=== PATIENT | female | born 1975 | race Caucasian/White ===

== ENCOUNTER → 2016-03-15 | Outpatient (CLI) | payer BC ==
--- NOTE | 2016-03-16 09:36 | MM ---
Reason for exam: screening (asymptomatic). Last mammogram was performed 1 year and 3 months ago. History: Retro-pectoral silicone gel implants in both breasts, February 2014. Benign cyst aspiration of the left breast, 2009. Saline implants in both breasts, 2004. Physical Findings: A clinical breast exam by your physician is recommended on an annual basis and results should be correlated with mammographic findings. MG Screening Mammo Implant/CAD Bilateral CC, MLO, and ID view(s) were taken. Prior study comparison: December 18, 2014, bilateral MG screening mammo implant/CAD. June 22, 2011, CAD bilateral diagnostic mammogram. The breast tissue is extremely dense which could obscure a lesion on mammography. There is no discrete abnormality. Implants are intact. No significant changes when compared with prior studies. ASSESSMENT: Negative, BI-RAD 1 RECOMMENDATION: Routine screening mammogram of both breasts in 1 year.
== END | disposition home or self-care (01) ==
LOC: RADMAMWWP 08:25
PROVIDERS: ATTEND Obstetrics & Gynecology
DX: Z12.31 Encounter for screening mammogram for malignant neoplasm of breast (principal)

== ENCOUNTER 2016-05-30 07:51 | Day surgery (SDC) | payer BC ==
[2016-05-30] MEDS ORDERED: LACTATED RINGERS 1,000 ML IV SCH (08:22)
[2016-05-30] MEDS ORDERED: LIDOCAINE 1% 20 ML VIAL (10MG/ML) FOR IV START INTRADERMA PRN (08:22)
[2016-05-30] MEDS ORDERED: FAMOTIDINE 20 MG/2 ML VIAL IV PRN (08:22)
[2016-05-30] MEDS ORDERED: MIDAZOLAM 2 MG/2 ML VIAL IV PRN (08:22)
[2016-05-30] MEDS ORDERED: HYDROmorphone 1 MG/ML 1 ML SYRINGE IVP PRN (08:22)
[2016-05-30 08:37] VITALS: RESP 18; TEMP 98
[2016-05-30] MEDS ORDERED: LACTATED RINGERS 1,000 ML IV ONE (08:37)
[2016-05-30] MEDS ORDERED: DEXAMETHASONE SOD PHOS (MDV) 100 MG/10 ML VIAL IVP ONE (08:39)
[2016-05-30] MEDS ORDERED: ONDANSETRON 4 MG/2 ML VIAL IVP ONE (08:40)
[2016-05-30] MEDS ORDERED: SCOPOLAMINE 1.5MG/72HR PATCH TRANSDERM ONE (08:40)
[2016-05-30] MEDS ORDERED: CIPROFLOXACIN/DEXTROSE PMX 400 MG in DEXTROSE/WATER 1 200ML.BAG IVPB STA (08:43)
[2016-05-30] MEDS ORDERED: HEPARIN SODIUM,PORCINE 5,000 UNIT/ML 1 ML VIAL SQ ONE (09:02)
--- NOTE | 2016-05-30 09:05 | P.PN ---
Progress Note - Text This is an addendum to history and physical I have had a discussion with the patient and her that we will do an anoscopic exam at the time of I&D of the abscess. Additionally we have discussed that I will do an I&D of the abscess however, if this is persistent postoperatively where she has persistent drainage we will obtain consultation with infectious disease and possibly colorectal surgery. The patient and her understand the risks and benefits including bleeding, infection, and reaction to the anesthetic as well as recurrent or persistent abscess drainage and wish to proceed.
[2016-05-30] MEDS ORDERED: MIDAZOLAM 2 MG/2 ML VIAL ONE (09:23)
[2016-05-30] MEDS ORDERED: ePHEDrine 50 MG/ML 1 ML AMP ONE (09:23)
[2016-05-30] MEDS ORDERED: fentaNYL (PF) 50 MCG/ML 2 ML AMP ONE (09:23)
[2016-05-30] MEDS ORDERED: PROPOFOL 10 MG/ML 20 ML VIAL IV ONE (09:23)
[2016-05-30] MEDS ORDERED: LIDOCAINE 1% INJ 10MG/ML (20 ML MDV) SQ ONE ×2 (09:46)
--- NOTE | 2016-05-30 10:00 | P.OP ---
Date of Procedure: 05/30/16 Preoperative Diagnosis: Left perianal abscess Postoperative Diagnosis: Same Procedure(s) Performed: Anoscopic exam under anesthesia, I&D perianal abscess Anesthesia: MAC, local Surgeon: Melodie Valentin Estimated Blood Loss (ml): 1 IV fluids (ml): 300 Pathology: other (portion of wall of the abscess) Condition: stable Disposition: PACU Indications for Procedure: Persistent draining perianal abscess Operative Findings: 1 x 0.8 cm left lateral perianal abscess approximately 1 cm from the anal verge , external hemorrhoids, internal hemorrhoids, healthy-appearing anal mucosa no lesions of concern noted on anoscopy Description of Procedure: Patient was taken to the operating room and placed in the left lateral position. Sedation was administered. Following this a rectal examination was performed. Patient was noted to have good sphincter tone. She was noted to have an anterior and left posterior lateral hemorrhoidal external complex. Additionally in the left posterior lateral area there is a 1 x 0.8 cm swelling which had an opening with some seropurulent drainage. Patient underwent an anoscopic examination. The endoscope was introduced without difficulty. Careful evaluation of the mucosa did not reveal any specific lesions of concern. The mucosa appeared to be healthy. As the scope was withdrawn on the left lateral wall of the anal canal careful attention was made to look for any fistulous tract opening. There was a question of a pinpoint area of increased erythema at this region but no fistulous tract was identified. The patient was noted to have some very small internal hemorrhoidal tissue which is not worrisome. Following this the perianal area was prepped and draped in a sterile fashion. A probe was utilized to evaluate the area of the abscess. No tract was identified. A small cruciate incision was made over the area and the floor of the abscess cavity appeared to be very firm and consistent with granulation tissue. This was debrided. Cultures were obtained. The wound was well irrigated. No evidence of any tract was identified. After we were assured that hemostasis was attained the wound was packed using iodoform gauze. The size of the defect was approximately 1 x 1 by 0.8 cm. The patient tolerated procedure in stable condition. All instrument and sponge counts were correct at the end of the case.
--- NOTE | 2016-05-30 10:04 | P.DS ---
Providers Attending physician: Melodie Valentin Primary care physician: Stated None Plan - Discharge Summary New Discharge Prescriptions: Ciprofloxacin [Cipro Susp] 500 mg PO Q12HR #14 ml HYDROcodone/APAP 5-325MG [Prosper 5] 1 - 2 each PO Q4H PRN #20 tab PRN Reason: Pain Discharge Medication List Ciprofloxacin [Cipro Susp] 500 mg PO Q12HR #14 ml 05/30/16 [Rx] HYDROcodone/APAP 5-325MG [Prosper 5] 1 - 2 each PO Q4H PRN #20 tab 05/30/16 [Rx] Patient Instructions/Handouts: *Surgery [facility] - Scopalamine Patch Instructions Activity/Diet/Wound Care/Special Instructions: Sitz baths twice a day Change packing iodoform gauze twice a day Do not drive today Do not drive if taking narcotic pain medication Patient to call if any concerns with fever or increased pain or questions Discharge Disposition: HOME SELF-CARE
[2016-05-30 10:39] VITALS: BP 99/70; PULSE 62
== END 2016-05-30 11:06 | disposition home or self-care (01) ==
LOC: OR 07:51
PROVIDERS: ATTEND Surgery
DX: K61.0 Anal abscess (principal); K64.4 Residual hemorrhoidal skin tags; K64.8 Other hemorrhoids; Z88.2 Allergy status to sulfonamides
CPT/HCPCS: 81025; 88304; 87070; 87205; 87075; 46045; J2250; J2405; J2001; J3010; J0744; J1100; J2704

== ENCOUNTER → 2016-11-27 | Outpatient (CLI) | payer OTHER | END | disposition home or self-care (01) | LOC: LABWHC1 10:38 | PROVIDERS: ATTEND Internal Medicine | DX: Z00.5 Encounter for examination of potential donor of organ and tissue (principal) | CPT/HCPCS: 36415 ==

== ENCOUNTER → 2017-07-11 | Outpatient (CLI) | payer BC ==
--- NOTE | 2017-07-11 15:18 | MM ---
Reason for exam: screening (asymptomatic). Last mammogram was performed 1 year and 4 months ago. History: Retro-pectoral silicone gel implants in both breasts, February 2014. Benign cyst aspiration of the left breast, 2009. Saline implants in both breasts, 2004. Physical Findings: A clinical breast exam by your physician is recommended on an annual basis and results should be correlated with mammographic findings. MG Screening Mammo Implant/CAD Bilateral CC and MLO view(s) were taken. Prior study comparison: March 15, 2016, bilateral MG screening mammo implant/CAD. December 18, 2014, bilateral MG screening mammo implant/CAD. The breast tissue is heterogeneously dense. This may lower the sensitivity of mammography. Bilateral implants are intact. ASSESSMENT: Negative, BI-RAD 1 RECOMMENDATION: Routine screening mammogram of both breasts in 1 year.
== END | disposition home or self-care (01) ==
LOC: RADMAMWWP 08:26
PROVIDERS: ATTEND Obstetrics & Gynecology
DX: Z12.31 Encounter for screening mammogram for malignant neoplasm of breast (principal)
CPT/HCPCS: 77067

== ENCOUNTER → 2018-05-31 | Outpatient (CLI) | payer BC | END | disposition home or self-care (01) | LOC: LABWHC1 10:30 | PROVIDERS: ATTEND Obstetrics & Gynecology | DX: N95.9 Unspecified menopausal and perimenopausal disorder (principal) | CPT/HCPCS: 36415; 83001 ==

== ENCOUNTER → 2018-10-10 | Outpatient (CLI) | payer BC ==
--- NOTE | 2018-10-14 09:52 | MM ---
Reason for exam: screening (asymptomatic). Last mammogram was performed 1 year and 3 months ago. History: Retro-pectoral silicone gel implants in both breasts, February 2014. Benign cyst aspiration of the left breast, 2009. Saline implants in both breasts, 2004. Physical Findings: A clinical breast exam by your physician is recommended on an annual basis and results should be correlated with mammographic findings. MG Screening Mammo Implant/CAD Bilateral CC, MLO, and ID view(s) were taken. Prior study comparison: July 11, 2017, bilateral MG screening mammo implant/CAD. March 15, 2016, bilateral MG screening mammo implant/CAD. The breast tissue is heterogeneously dense. This may lower the sensitivity of mammography. Bilateral breast prothesis. No significant changes when compared with prior studies. ASSESSMENT: Benign, BI-RAD 2 RECOMMENDATION: Routine screening mammogram of both breasts in 1 year.
== END | disposition home or self-care (01) ==
LOC: RADMAMWWP 15:42
PROVIDERS: ATTEND Obstetrics & Gynecology
DX: Z12.31 Encounter for screening mammogram for malignant neoplasm of breast (principal); Z98.82 Breast implant status
CPT/HCPCS: 77067

== ENCOUNTER → 2020-02-06 | Outpatient (CLI) | payer BC ==
--- NOTE | 2020-02-09 10:04 | MM ---
Reason for exam: screening (asymptomatic). Last mammogram was performed 1 year and 4 months ago. History: Pre-pectoral implants in both breasts, February 2019. Breast lifts of both breasts, February 2019. Retro-pectoral silicone gel implants in both breasts, February 2014. Benign cyst aspiration of the left breast, 2009. Saline implants in both breasts, 2004. Taking hormonal contraceptives for 2 years. Physical Findings: A clinical breast exam by your physician is recommended on an annual basis and results should be correlated with mammographic findings. MG Screening Mammo Implant/CAD Bilateral CC, MLO, and ID view(s) were taken. Prior study comparison: October 10, 2018, bilateral MG screening mammo implant/CAD. July 11, 2017, bilateral MG screening mammo implant/CAD. The breast tissue is heterogeneously dense. This may lower the sensitivity of mammography. Bilateral implants are intact. ASSESSMENT: Benign, BI-RAD 2 RECOMMENDATION: Routine screening mammogram of both breasts in 1 year.
== END | disposition home or self-care (01) ==
LOC: RADMAMWWP 07:22
PROVIDERS: ATTEND Obstetrics & Gynecology
DX: Z12.31 Encounter for screening mammogram for malignant neoplasm of breast (principal); Z98.82 Breast implant status
CPT/HCPCS: 77067

== ENCOUNTER → 2021-02-16 | Outpatient (CLI) | payer BC ==
--- NOTE | 2021-02-21 10:42 | MM ---
Reason for exam: screening (asymptomatic). Last mammogram was performed 1 year ago. History: Pre-pectoral implants in both breasts, February 2019. Breast lifts of both breasts, February 2019. Retro-pectoral silicone gel implants in both breasts, February 2014. Benign cyst aspiration of the left breast, 2009. Saline implants in both breasts, 2004. Taking hormonal contraceptives for 2 years. Physical Findings: A clinical breast exam by your physician is recommended on an annual basis and results should be correlated with mammographic findings. MG Screening Mammo Implant/CAD Bilateral CC, MLO, and ID view(s) were taken. Prior study comparison: February 06, 2020, bilateral MG screening mammo implant/CAD. October 10, 2018, bilateral MG screening mammo implant/CAD. The breast tissue is heterogeneously dense. This may lower the sensitivity of mammography. Retropectoral silicone implants. Benign oil cyst calcifications on the left. Stable areas of asymmetric density. ASSESSMENT: Benign, BI-RAD 2 RECOMMENDATION: Routine screening mammogram of both breasts in 1 year. Patient should continue monthly self breast exams. A negative report should not preclude additional follow up of suspicious palpable abnormalities.
== END | disposition home or self-care (01) ==
LOC: RADMAMWWP 08:08
PROVIDERS: ATTEND Obstetrics & Gynecology
DX: Z12.31 Encounter for screening mammogram for malignant neoplasm of breast (principal)
CPT/HCPCS: 77067

== ENCOUNTER → 2023-05-04 | Outpatient (CLI) | payer BC ==
--- NOTE | 2023-05-07 10:44 | MM ---
Reason for Exam: Screening (asymptomatic). Last mammogram was performed 1 year(s) and 1 month(s) ago. Patient History: Menarche at age 10. First Full-Term at age 23. Currently using Hormonal Contraceptives, for 2 years. 2009, Benign Cyst Aspiration on the left side. 02/2014, Bilateral Implants. 2004, Bilateral Implants. 02/2019, Bilateral Implants. Last menstrual period: 11/30/2022 Risk Values: Martina 5 year model risk: 1.0%. NCI Lifetime model risk: 10.0%. Prior Study Comparison: 02/06/2020 Bilateral Screening Mammogram, [facility]. 02/16/2021 Bilateral Screening Mammogram, [facility]. 03/30/2022 Bilateral MG screening mammo implant/CAD, [facility]. Tissue Density: The breasts are heterogeneously dense, which may obscure small masses. Findings: Analyzed By CAD. There is no suspicious group of microcalcifications or new suspicious mass in either breast. Benign calcification left breast. Overall Assessment: Benign, BI-RAD 2 Management: Screening Mammogram of both breasts in 1 year. . Patient should continue monthly self-breast exams. A clinical breast exam by your physician is recommended on an annual basis. This exam should not preclude additional follow-up of suspicious palpable abnormalities. Note on Martina scores and lifetime risk: 1. A Martina score greater than 3% is considered moderate risk. If this is the case, consider specialist referral to assess eligibility for a risk reducing agent. 2. If overall lifetime risk for the development of breast cancer is 20% or higher, the patient may qualify for future screening with alternating mammogram and breast MRI. Electronically signed and approved by: Hakeem Farris M.D. Radiologis
== END | disposition home or self-care (01) ==
LOC: RADMAMWWP 08:29
PROVIDERS: ATTEND Obstetrics & Gynecology
DX: Z12.31 Encounter for screening mammogram for malignant neoplasm of breast (principal)
CPT/HCPCS: 77063; 77067

== ENCOUNTER → 2024-05-07 | Outpatient (CLI) | payer BC ==
[2024-05-07 15:53] LABS: Basophils # (A) 0.04 X 10*3/uL (0.00-0.10); Basophils % (A) 0.8 %; Eosinophils # (A) 0.11 X 10*3/uL (0.04-0.35); Eosinophils % (A) 2.3 %; HCT 42.3 % (37.2-46.3); HGB 13.6 g/dL (12.0-15.0); Lymphocytes % (A) 18.5 %; MCH 28.9 pg (27.0-32.0); MCHC 32.2 g/dL (32.0-37.0); MCV 89.8 FL (80.0-97.0); Mean Platelet Volume 10.8 FL (9.5-12.2); Monocytes # (A) 0.39 X 10*3/uL (0.20-1.00); NRBC Per 100 WBC 0 X 10*3/uL (0.00-0.01); Neutrophils # (A) 3.41 X 10*3/uL (1.80-7.70); Neutrophils % (A) 70.2 %; Platelet Count 201 X 10*3/uL (140-440); RBC 4.71 X 10*6/uL (4.10-5.20); RDW 13.9 % (11.5-14.5); WBC 4.86 X 10*3/uL (4.50-10.00)
[2024-05-07 16:08] LABS: ALT 19 U/L (8-44); AST 21 U/L (13-35); Albumin/Globulin Ratio 1.54 Ratio (1.60-3.17); Alkaline Phosphatase 55 U/L (41-126); BUN/Creat Ratio 16.67 Ratio (12.00-20.00); Calcium 9.1 mg/dL (8.7-10.3); Carbon Dioxide 24.8 mmol/L (21.6-31.8); Chloride 104 mmol/L (96-109); Chol/HDL Ratio 2.17 Ratio; Globulin 2.6 g/dL (1.6-3.3); Glucose 88 mg/dL (70-110); LDL Cholesterol,Calculated 65.8 mg/dL (0.0-131.0); Potassium 4.5 mmol/L (3.5-5.5); Sodium 139 mmol/L (135-145); Total Bilirubin 0.3 mg/dL (0.3-1.2); Total Protein 6.6 g/dL (6.2-8.2)
[2024-05-07 22:35] LABS: C-Peptide 1.37 ng/mL (0.81-3.85)
== END | disposition home or self-care (01) ==
LOC: LABWHC1 07:17
PROVIDERS: ATTEND Family Medicine
DX: Z00.00 Encounter for general adult medical examination without abnormal findings (principal)
CPT/HCPCS: 36415; 80053; 80061; 84443; 84681; 85025

== ENCOUNTER → 2024-05-07 | Outpatient (CLI) | payer BC ==
--- NOTE | 2024-05-07 08:02 | MM ---
Reason for Exam: Screening (asymptomatic). Last screening mammogram was performed 12 month(s) ago. Patient History: Menarche at age 10. First Full-Term at age 23. Currently using Hormonal Contraceptives, for 2 years. 2009, Benign Cyst Aspiration on the left side. 02/2014, Bilateral Implants. 2004, Bilateral Implants. 02/2019, Bilateral Implants. Risk Values: Martina 5 year model risk: 1.1%. NCI Lifetime model risk: 9.9%. Prior Study Comparison: 02/16/2021 Bilateral Screening Mammogram, [facility]. 03/30/2022 Bilateral MG screening mammo implant/CAD, [facility]. 05/04/2023 Bilateral MG 3D screen mammo imp/cad., [facility]. Tissue Density: The breasts are heterogeneously dense, which may obscure small masses. Findings: Analyzed By CAD. Bilateral breast implants are redemonstrated. There is no suspicious new group of microcalcifications or new suspicious mass in either breast. Overall Assessment: Benign, BI-RAD 2 Management: Screening Mammogram of both breasts in 1 year. Some advise annual bilateral breast ultrasound surveillance in patient's with background dense tissue. Patient should continue monthly self-breast exams. A clinical breast exam by your physician is recommended on an annual basis. This exam should not preclude additional follow-up of suspicious palpable abnormalities. Note on Martina scores and lifetime risk: 1. A Martina score greater than 3% is considered moderate risk. If this is the case, consider specialist referral to assess eligibility for a risk reducing agent. 2. If overall lifetime risk for the development of breast cancer is 20% or higher, the patient may qualify for future screening with alternating mammogram and breast MRI. [facility], , 05/07/2024 7:59 AM. Electronically signed and approved by: Kris Welsh M.D.
== END | disposition home or self-care (01) ==
LOC: RADMAMWWP 06:55
PROVIDERS: ATTEND Obstetrics & Gynecology
DX: Z12.31 Encounter for screening mammogram for malignant neoplasm of breast (principal); R92.333 Mammographic heterogeneous density, bilateral breasts; Z98.82 Breast implant status
CPT/HCPCS: 77063; 77067